=== PATIENT | male | born 1970 | race Caucasian/White ===

== ENCOUNTER 2016-04-08 22:30 | Emergency (ER) | payer MEDICARE | END 2016-04-09 00:20 | disposition home or self-care (01) | LOC: FER 22:30 | DX: M54.5 Low back pain (principal); G89.29 Other chronic pain; V49.40XA Driver injured in collision with unspecified motor vehicles in traffic accident, initial encounter; Y92.410 Unspecified street and highway as the place of occurrence of the external cause | CPT/HCPCS: J1885 ==

== ENCOUNTER 2020-10-24 11:22 | Emergency (ER) | payer MEDICARE ==
[~2020-10-24 11:22] MED LIST: ACETAMINOPHEN; AUGMENTIN250 MG PO; CARAFATE1 GM PO; LOPRESSOR50 MG PO; NICOTINE PATCH1 EAC2 EXT; NORVASC5 MG PO; PAXIL20 MG PO; PRINIVIL20 MG PO; PROTONIX 40MG T40 MG PO; TRAZODONE HCL100 MG PO
[2020-10-24 12:36] LABS: BASOPHIL 0.2 % (0-2); EOSINOPHIL 0.6 % (0-5); HCT 42.2 % (42.0-52.0); HGB 14.8 g/dl (13.2-18.0); LYMPHOCYTE 11.8 % (15-48); MCH 31.4 pg (25.0-31.0); MCHC 35.1 g/dL (32.0-36.0); MCV 89.6 fL (78.0-100.0); MONOCYTE 5.7 % (0-12); MPV 9.4 fL (6.0-9.5); NEUTROPHIL 81.1 % (41-80); NRBC 0; PLT 455 K/uL (150-400); RBC 4.71 M/uL (4.70-6.00); WBC 18.6 K/uL (4.0-10.5)
[2020-10-24 12:44] LABS: ALBUMIN 4.1 g/dL (3.4-5.0); BILIRUBIN - TOTAL 0.7 mg/dL (0.2-1.0); BUN/CREAT RATIO (CALC) 1.8 RATIO; CREATININE 0.57 mg/dL (0.67-1.17); GLOBULIN (CALCULATION) 3.6 g/dL; TOTAL PROTEIN 7.7 g/dL (6.4-8.2)
[2020-10-24 12:45] LABS: BILIRUBIN 1+ mg/dL (NEGATIVE); BLOOD TRACE-INTACT Ery/uL (NEGATIVE); CLARITY CLEAR (CLEAR); COLOR YELLOW (YELLOW); GLUCOSE (U) NORMAL (NORMAL); LEUKOCYTES NEGATIVE Leu/uL (NEGATIVE); NITRITE NEGATIVE (NEGATIVE); PROTEIN 1+ mg/dL (NEGATIVE); SPECIFIC GRAVITY 1.015 (1.001-1.030)
[2020-10-24 15:24] LABS: LACTIC ACID 0.9 mmol/L (0.4-1.9)
[2020-10-24] MEDS ORDERED: BENTYL10 MG PO (15:58)
[2020-10-24] MEDS ORDERED: K-DUR20 MEQ PO (15:58)
[2020-10-24] MEDS ORDERED: ZOFRAN4 M1 PO (15:58)
[2020-10-24] MEDS ORDERED: METRONIDAZOLE500 MG PO (15:58)
[2020-10-24] MEDS ORDERED: CIPRO500 MG PO (15:58)
== END 2020-10-24 16:20 | disposition home or self-care (01) ==
LOC: FER 11:22
PROVIDERS: Nurse Practitioner Family
DX: A09 Infectious gastroenteritis and colitis, unspecified (principal); E87.6 Hypokalemia; I10 Essential (primary) hypertension; J44.9 Chronic obstructive pulmonary disease, unspecified; F17.210 Nicotine dependence, cigarettes, uncomplicated
CPT/HCPCS: 36415; 80053; 81001; 83605; 85025; 87040; 93005; J1885; J2270; J2405; J2543; J7030; Q9967